=== PATIENT | female | born 1950 | race Caucasian/White ===

== ENCOUNTER 2016-12-04 15:26 | Inpatient (IN) | payer MEDICAID, OTHER ==
[~2016-12-04] VITALS: Ht 157.5 cm; Wt 82.0 kg
[~2016-12-04 15:26] MED LIST: IBUP400T22 PO; TRAM50TA2 PO
[2016-12-04] MEDS ORDERED: SODIUM CHLORIDE 0.9% 1L BAG IV* STA (15:39)
[2016-12-04] MEDS ORDERED: morphine 4 MG/ML VIAL IV STA (15:39)
[2016-12-04] MEDS ORDERED: ONDANSETRON 4 MG INJ IV STA ×2 (15:39→17:57)
[2016-12-04] MEDS ORDERED: CEFEPIME 2GM/50 ML (PMX) 50 ML IVPB STA (15:39)
[2016-12-04 16:00] LABS: ADD SCAN DIFF NO
[2016-12-04] MEDS ORDERED: VANCOMYCIN 1 GM (PMX) 250 ML IVPB ONE (16:00)
[2016-12-04 16:04] LABS: BASOPHILS % 0.1 % (0.0-2.0); EOSINOPHILS % 0.1 % (0.0-7.0); HEMATOCRIT 49.1 % (37.0-47.0); HEMOGLOBIN 15.9 g/dl (12.0-16.0); LYMPHOCYTES # 2.6 10^3/ul (0.8-2.9); LYMPHOCYTES % 19.6 % (15.0-51.0); MEAN CORPUSCULAR HEMOGLOBIN 28.1 pg (29.0-33.0); MEAN CORPUSCULAR HGB CONC 32.4 g/dl (32.0-37.0); MEAN CORPUSCULAR VOLUME 86.9 fl (82.0-101.0); MEAN PLATELET VOLUME 10.7 fl (7.4-10.4); MONOCYTE # 0.3 10^3/ul (0.3-0.9); MONOCYTES % 2.1 % (0.0-11.0); NEUTROPHIL # 10.4 10^3/ul (1.6-7.5); NEUTROPHILS % 77.9 % (39.0-77.0); PLATELET COUNT 333 10^3/UL (140-415); RED BLOOD COUNT 5.65 10^6/ul (4.20-5.40); RED CELL DISTRIBUTION WIDTH 13.6 % (11.5-14.5); WHITE BLOOD COUNT 13.4 10^3/ul (4.8-10.8)
[2016-12-04 16:13] LABS: INR 0.9; PROTIME 12.1 Sec (12.2-14.2); PT RATIO 0.9
[2016-12-04 16:14] LABS: ALBUMIN 5.1 g/dl (3.3-4.9); CHLORIDE 95 mmol/L (97-110); PARTIAL THROMBOPLASTIN TIME 22.2 Sec (25.0-35.0)
[2016-12-04 16:15] LABS: SODIUM 139 mmol/L (135-144)
[2016-12-04 16:17] LABS: ALBUMIN/GLOBULIN RATIO 1.18; ANION GAP 22 (8-16); ASPARTATE AMINO TRANSFERASE 23 IU/L (15-46); BILIRUBIN,INDIRECT 0.6 mg/dl (0-1.1); BILIRUBIN,TOTAL 0.6 mg/dl (0.2-1.3); CARBON DIOXIDE 26 mmol/L (21-31); TOTAL PROTEIN 9.4 g/dl (6.1-8.1)
[2016-12-04 16:18] LABS: ALANINE AMINOTRANSFERASE 32 IU/L (13-69); ALKALINE PHOSPHATASE 109 IU/L (42-121); BLOOD UREA NITROGEN 16 mg/dl (7-20); CALCIUM 10.4 mg/dl (8.4-10.2); GLUCOSE 296 mg/dl (70-220)
[2016-12-04] MEDS ORDERED: METF1000 PO (16:21)
[2016-12-04] MEDS ORDERED: LANT3I SC (16:22)
[2016-12-04] MEDS ORDERED: SITA100T8 PO (16:22)
[2016-12-04] MEDS ORDERED: SIMV40TA2 PO (16:23)
[2016-12-04] MEDS ORDERED: LISI20TA11 PO (16:23)
[2016-12-04] MEDS ORDERED: INSU100I12 SQ (16:24)
[2016-12-04 16:32] LABS: TROPONIN-I < 0.012 ng/ml (0.00-0.12)
--- NOTE | 2016-12-04 16:51 | RADRPT ---
PROCEDURE: XR Chest. CLINICAL INDICATION: Sepsis. TECHNIQUE: Single frontal view. COMPARISON: None. FINDINGS: The lungs are clear. The heart is enlarged. There is calcification in the aorta consistent with atherosclerosis. There is no pleural effusion. There is no pneumothorax. IMPRESSION: 1. Cardiomegaly and atherosclerosis. 2. Clear lungs. RPTAT: QQ .Ihsan Danielson MD, MD Date Time Electronically viewed and signed by .Ihsan Danielson MD, MD on 12/04/2016 16:51 .R/
--- NOTE | 2016-12-04 17:07 | RADRPT ---
PROCEDURE: CT Abdomen and Pelvis without contrast. CLINICAL INDICATION: Abdominal and pelvic pain. Vomiting. Sepsis TECHNIQUE: CT scan of the abdomen and pelvis without contrast was performed. Coronal and sagittal reformatted images were obtained from the axial source images. Images were reviewed on a high-res[employer] PACS workstation. Total exam DLP is 1219.64 mGy-cm. CTDIvol is 21.17 mGy. One or more of the following dose reduction techniques were used: Automated exposure control, adjustment of the mA and/ or kV according to patient size, use of iterative reconstruction technique. COMPARISON: None. FINDINGS: There is mild atelectasis at the lung bases posteriorly. The lung bases are otherwise normal. The heart size is normal. There is coronary artery calcification. There is no pleural effusion or trip cardial effusion. The liver is enlarged and diffusely decreased attenuation consistent with fatty metamorphosis. Ther e is no focal hepatic lesion. The gallbladder and bile ducts are normal. The spleen is normal in size. There is no focal splenic lesion. Both adrenals are normal with no enlargement or mass. The pancreas is unremarkable with no mass or evidence of pancreatitis. There is no renal mass or hydronephrosis. There is no renal calculus or ureteral calculus. The abdominal aorta is not dilated. There is calcification in the aorta consistent with atheroscler osis. There is no retroperitoneal lymphadenopathy or mass. There is no pelvic lymphadenopathy or mass. The bladder and distal ureters are normal. The periappendiceal region is unremarkable with no evidence of appendicitis. There is mildly dilated small bowel containing fluid in the upper and mid abdomen. There are no air -fluid levels. The distal small bowel is not dilated. There is no discrete transition point. There is no free fluid or free gas. There are degenerative changes of the spine. There is no fracture or lytic lesion. IMPRESSION: 1. Mild atelectasis at the lung bases posteriorly. 2. Coronary artery calcification. 3. Hepatomegaly. 4. Fatty metamorphosis of the liver. 5. Atherosclerosis. 6. No urinary tract calculus or hydronephrosis. 7. Mildly dilated small bowel containing fluid in the upper and mid abdomen with no air-fluid level s. The distal small bowel is dilated and there is no discrete transition point. The findings may i ndicate partial small bowel obstruction. Clinical correlation and follow up is advised. 8. Degenerative changes of the spine. 9. Otherwise unremarkable study. RPTAT: QQ .Ihsan Danielson MD, Date Time Electronically viewed and signed by .Ihsan Danielson MD, on 12/04/2016 17:07 .R/
--- NOTE | 2016-12-04 17:34 | RADRPT ---
PROCEDURE: US Abdomen (right upper quadrant). CLINICAL INDICATION: Right upper quadrant abdomen pain. Vomiting. TECHNIQUE: Multiple real-time longitudinal and transverse images of the right upper quadrant of th e abdomen were acquired utilizing a curved array transducer. Images were reviewed on a high-[employer] on PACS workstation. COMPARISON: None FINDINGS: The liver is normal in size and diffusely increased in echogenicity. There is no focal hepatic lesion. The gallbladder is normal with no stones or wall thickening. There is no pericholecystic fluid jose j ection. The bile ducts are normal with the common bile duct measuring mm in diameter. The visualized portions of the pancreas are unremarkable with obscuration of the tail of the pancrea s. There is no free fluid. There is a fluid collection between the gallbladder and pancreas measuring approximately 4.1 x 3.6 x 8.4 cm. This is due to dilated duodenum containing fluid. The right kidney measures 11.7 x 5.5 x 5.4 cm. There is normal echogenicity of the right kidney. There is no perinephric fluid collection. No hydronephrosis, mass, or calculus is seen. IMPRESSION: 1. Fatty metamorphosis of the liver. 2. Fluid collection between the gallbladder and pancreas which is due to dilated duodenum. Subsequ ent CT scan demonstrates dilated duodenum at this site and no abscess or other fluid collection. 3. Otherwise unremarkable study. RPTAT: QQ .Ihsan Danielson MD, Date Time Electronically viewed and signed by .Ihsan Danielson MD, on 12/04/2016 17:34 .R/
[2016-12-04] MEDS ORDERED: ONDANSETRON 4 MG INJ IV PRN ×2 (18:00→19:00)
[2016-12-04] MEDS ORDERED: ACETAMINOPHEN 325 MG TAB PO PRN ×2 (18:00→19:00)
--- NOTE | 2016-12-04 18:02 | ERA ---
ER Documentation Chief Complaint Date/Time DATE: 12/04/16 TIME: 17:59 Chief Complaint AP WITH VOMITING ONSET 1 HR AGO HPI Patient is a 66-year-old female with hypertension and diabetes who presents with abdominal pain and vomiting. The patient says that she is having pain in her liver. She has abdominal pain diffusely as well as vomiting yellow per the family. This started 1.5 hours ago. It actually started on Thursday but was worse today. The patient has had subjective fever. Upon review of old medical records the patient one previous visit to the ER in 2016. ROS All systems reviewed and are negative except as per history of present illness. Medications Home Meds Reported Medications Insulin Lispro (Humalog Kwikpen U-100) 100 Unit/1 Ml Insuln.pen, 15 UNIT SQ QAM 12/04/16 Simvastatin* (Zocor*) 40 Mg Tablet, 40 MG PO QHS, #30 TAB 12/04/16 Lisinopril* (Lisinopril*) 20 Mg Tablet, 40 MG PO DAILY, #30 TAB 12/04/16 Insulin Glargine* (Lantus*) 100 Unit/Ml Soln, 40 UNIT SC QHS, #1 VIAL 12/04/16 Sitagliptin* (Januvia*) 100 Mg Tablet, 100 MG PO DAILY, #30 TAB 12/04/16 Metformin Hcl* (Metformin Hcl*) 1,000 Mg Tablet, 1000 MG PO WITH BREAKFAST, #30 TAB 12/04/16 Discontinued Scripts Tramadol HCl (Tramadol HCl) 50 Mg Tablet, 50 MG PO Q4 Y for PAIN, #20 TAB Prov:JED,LORY C 07/31/16 Ibuprofen* (Motrin*) 400 Mg Tab, 400 MG PO Q6, #30 TAB Prov:JED,LORY C 07/31/16 Allergies Allergies: Coded Allergies: No Known Allergy (Unverified , 12/04/16) PMhx/Soc History of Surgery: No Anesthesia Reaction: No Hx Neurological Disorder: No Hx Respiratory Disorders: No Hx Cardiac Disorders: Yes (HTN) Hx Psychiatric Problems: No Hx Miscellaneous Medical Probl: Yes (DM) Hx Alcohol Use: No Hx Substance Use: No Hx Tobacco Use: No Smoking Status: Never smoker FmHx Family History: diabetes Physical Exam Vitals Vital Signs Date Time Temp Pulse Resp B/P Pulse Ox O2 Delivery O2 Flow Rate FiO2 4/13/17 17:26 89 18 104/54 98 Room Air 12/04/16 17:07 88 18 87/54 98 Room Air 12/04/16 16:09 Nasal Cannula 2 12/04/16 15:29 98.1 103 20 106/59 99 Physical Exam Const: Moderate distress Head: Atraumatic Eyes: Normal Conjunctiva ENT: Normal External Ears, Nose and Mouth. Neck: Full range of motion..~ No meningismus. Resp: Clear to auscultation bilaterally Cardio: Regular rate and rhythm, no murmurs Abd: Soft, diffuse tenderness to palpation without rebound or guarding Skin: No petechiae or rashes Back: No midline or flank tenderness Ext: No cyanosis, or edema Neur: Awake and alert Psych: Normal Mood and Affect Result Diagram: 12/04/16 1545 12/04/16 1545 Results 24 hrs Laboratory Tests Test 12/04/16 15:45 White Blood Count 13.410^3/ul Red Blood Count 5.6510^6/ul Hemoglobin 15.9g/dl Hematocrit 49.1% Mean Corpuscular Volume 86.9fl Mean Corpuscular Hemoglobin 28.1pg Mean Corpuscular Hemoglobin Concent 32.4g/dl Red Cell Distribution Width 13.6% Platelet Count 20553^3/UL Mean Platelet Volume 10.7fl Neutrophils % 77.9% Lymphocytes % 19.6% Monocytes % 2.1% Eosinophils % 0.1% Basophils % 0.1% Nucleated Red Blood Cells % 0.0/100WBC Neutrophils # 10.410^3/ul Lymphocytes # 2.610^3/ul Monocytes # 0.310^3/ul Eosinophils # 0.010^3/ul Basophils # 0.010^3/ul Nucleated Red Blood Cells # 0.010^3/ul Prothrombin Time 12.1Sec Prothrombin Time Ratio 0.9 INR International Normalized Ratio 0.90 Activated Partial Thromboplast Time 22.2Sec Sodium Level 139mmol/L Potassium Level 4.0mmol/L Chloride Level 95mmol/L Carbon Dioxide Level 26mmol/L Anion Gap 22 Blood Urea Nitrogen 16mg/dl Creatinine 0.90mg/dl Glucose Level 296mg/dl Lactic Acid Level 3.6mmol/L Calcium Level 10.4mg/dl Total Bilirubin 0.6mg/dl Direct Bilirubin 0.00mg/dl Indirect Bilirubin 0.6mg/dl Aspartate Amino Transf (AST/SGOT) 23IU/L Alanine Aminotransferase (ALT/SGPT) 32IU/L Alkaline Phosphatase 109IU/L Troponin I < 0.012ng/ml Total Protein 9.4g/dl Albumin 5.1g/dl Globulin 4.30g/dl Albumin/Globulin Ratio 1.18 Lipase 189U/L Current Medications Medications (Trade) Dose Ordered Sig/Debra Route PRN Reason Start Time Stop Time Status Last Admin Dose Admin Sodium Chloride 2760 ml 2,760 ml BOLUS OVER 2 HOURS STAT IV* 12/04/16 15:39 12/04/16 15:41 DC 12/04/16 15:53 Cefepime HCl 50 ml @ 100 mls/hr ONCE STAT IVPB 12/04/16 15:39 12/04/16 16:08 DC 12/04/16 15:58 Vancomycin HCl (Vancocin) 250 ml @ 125 mls/hr ONCE ONCE IVPB 12/04/16 16:00 12/04/16 17:59 12/04/16 16:21 Morphine Sulfate (morphine) 4 mg ONCE STAT IV 12/04/16 15:39 12/04/16 15:41 DC 12/04/16 15:58 Ondansetron HCl (Zofran Inj) 4 mg ONCE STAT IV 12/04/16 15:39 12/04/16 15:41 DC 12/04/16 15:58 Ondansetron HCl (Zofran Inj) 4 mg BRIDGE ORDER PRN IV NAUSEA AND/OR VOMITING 12/04/16 18:00 12/05/16 17:59 Acetaminophen (Tylenol Tab) 650 mg ER BRIDGE PRN PO MILD PAIN/FEVER 12/04/16 18:00 12/05/16 17:59 Ondansetron HCl (Zofran Inj) 4 mg ONCE STAT IV 12/04/16 17:57 12/04/16 17:58 Procedures/MDM EKG read by me: Rate/Rhythm: Regular rate and rhythm at a rate of 89 Intervals: Normal Impression: No evidence of ischemia or arrhythmia PROCEDURE: CT Abdomen and Pelvis without contrast. CLINICAL INDICATION: Abdominal and pelvic pain. Vomiting. Sepsis TECHNIQUE: CT scan of the abdomen and pelvis without contrast was performed. Coronal and sagittal reformatted images were obtained from the axial source images. Images were reviewed on a high-resolution PACS workstation. Total exam DLP is 1219.64 mGy-cm. CTDIvol is 21.17 mGy. One or more of the following dose reduction techniques were used: Automated exposure control, adjustment of the mA and/or kV according to patient size, use of iterative reconstruction technique. COMPARISON: None. FINDINGS: There is mild atelectasis at the lung bases posteriorly. The lung bases are otherwise normal. The heart size is normal. There is coronary artery calcification. There is no pleural effusion or pericardial effusion. The liver is enlarged and diffusely decreased attenuation consistent with fatty metamorphosis. There is no focal hepatic lesion. The gallbladder and bile ducts are normal. The spleen is normal in size. There is no focal splenic lesion. Both adrenals are normal with no enlargement or mass. The pancreas is unremarkable with no mass or evidence of pancreatitis. There is no renal mass or hydronephrosis. There is no renal calculus or ureteral calculus. The abdominal aorta is not dilated. There is calcification in the aorta consistent with atherosclerosis. There is no retroperitoneal lymphadenopathy or mass. There is no pelvic lymphadenopathy or mass. The bladder and distal ureters are normal. The periappendiceal region is unremarkable with no evidence of appendicitis. There is mildly dilated small bowel containing fluid in the upper and mid abdomen. There are no air-fluid levels. The distal small bowel is not dilated. There is no discrete transition point. There is no free fluid or free gas. There are degenerative changes of the spine. There is no fracture or lytic lesion. IMPRESSION: 1. Mild atelectasis at the lung bases posteriorly. 2. Coronary artery calcification. 3. Hepatomegaly. 4. Fatty metamorphosis of the liver. 5. Atherosclerosis. 6. No urinary tract calculus or hydronephrosis. 7. Mildly dilated small bowel containing fluid in the upper and mid abdomen with no air-fluid levels. The distal small bowel is dilated and there is no discrete transition point. The findings may indicate partial small bowel obstruction. Clinical correlation and follow up is advised. 8. Degenerative changes of the spine. 9. Otherwise unremarkable study. RPTAT: QQ .Ihsan Danielson MD, MD Date Time Electronically viewed and signed by .Ihsan Danielson MD, on 12/04/2016 17:07 Patient is a 66-year-old female with hypertension and diabetes who presents with abdominal pain and vomiting. Admit MDM: Patient's infectious symptoms have not stabilized and the patient is at risk of rapid decompensation. The patient will be admitted for careful hydration, antibiotic therapy, and infectious source control. Severe Sepsis criteria: Infectious source: Unclear at this time End organ damage indicated by: Lactate greater than 2 Sepsis Management: Time of recognition of severe sepsis/septic shock: 15:45 Within 3 hours of recognition: Blood cultures x 2 before broad-spectrum antibiotics: Yes 30 ml/kg NS bolus Completed Initial lactate 3.6 Repeat lactate pending Septic Shock Assessment: Any lactic acid > 4.0 No Persistent hypotension (SBP < 90 or 40 mmHg drop, MAP < 65) despite 30 mL/kg IV fluid bolus No Volume Re-assessment for Septic Shock (post 30 ml/kg bolus): No septic shock at this time Persistent Hypotension Treatment: Comfort care No Central line no Vasopressor started not required I considered further perfusion assessment with CVP measurement, SCVO2, bedside ultrasound volume assessment, passive leg raise, trial of further fluid bolus. And proceeded with Zofran, morphine, normal saline 30 mL/kg bolus, vancomycin IV , cefepime IV, and admission. Accepting Care Team Current data and ongoing care discussed. Admitting Physician: Dr. Dewitt from the panel team as the patient does not have a primary doctor that admits here and has never been admitted before and has [employer] insurance sales specialist(s): None Outstanding Data: Culture results and repeat lactic acid Critical Care: Critical care time 35 minutes Emergent fluid management while maintaining close respiratory support. Provision of immediate and broad-spectrum antibiotic therapy. Simultaneous assessment for possible sources in order to direct targeted therapy. Consideration for invasive and chemical support to prevent cardiopulmonary collapse. Departure Diagnosis: Primary Impression: Severe sepsis Additional Impression: Vomiting Qualified Code: R11.14 - Bilious vomiting with nausea Condition: Serious SHERRY MOHR MD Dec 04, 2016 18:02
[2016-12-04] MEDS ORDERED: SOD CHLORIDE 0.45% 1,000 ML IV SCH (18:59)
[2016-12-04] MEDS ORDERED: HYDROCODONE/APAP (5/325) TAB PO PRN (19:00)
[2016-12-04] MEDS ORDERED: morphine 2 MG INJ IV PRN (19:00)
[2016-12-04] MEDS ORDERED: NACL 0.9% 3 ML SYG IV SCH (19:00)
[2016-12-04 19:35] VITALS: BP 107/56; RESP 20
[2016-12-04] MEDS ORDERED: SOD CHLORIDE 0.9% 500 ML IV ONE (20:00)
[2016-12-04 21:00] VITALS: Ht 157.5 cm; Wt 82.0 kg
[2016-12-04] MEDS ORDERED: SOD CHLORIDE 0.9% 1,000 ML IV SCH (23:30)
[2016-12-04] MEDS ORDERED: VANCOMYCIN IV PER PHARMACY XX SCH (23:30)
[2016-12-04] MEDS ORDERED: GLUCOSE GEL 15 GRAM TUBE BUCCAL PRN (23:45)
[2016-12-04] MEDS ORDERED: GLUCOSE GEL 15 GRAM TUBE PO PRN ×2 (23:45)
[2016-12-04] MEDS ORDERED: DEXTROSE 50% 50 ML SYRINGE IV PRN ×2 (23:45)
[2016-12-04] MEDS ORDERED: GLUCAGON 1 MG INJ IM PRN (23:45)
[2016-12-05] MEDS ORDERED: CEFTRIAXONE 1 GM INJ IVPB SCH
[2016-12-05] MEDS: CEFTRIAXONE 1 GM/50 ML (PMX) 50 ML IVPB SCH ×3 (00:30→20:52)
[2016-12-05] MEDS ORDERED: IOHEXOL 14.3 MG(I)/ML (ADULT) BTL PO ONE (03:30)
[2016-12-05] MEDS ORDERED: BARIUM SULF 2% 450 ML BTL (BERRY SMOOTHIE) PO ONE ×2 (03:30→13:30)
[2016-12-05] MEDS: DEXTROSE 5%-0.45% NACL 1,000 ML IV SCH ×3 (03:55→20:10)
--- NOTE | 2016-12-05 04:38 | HP ---
DATE OF ADMISSION: 12/04/2016 TIME SEEN: 2200. CHIEF COMPLAINT: Abdominal pain. HISTORY OF PRESENT ILLNESS: The patient is a 66-year-old female with a history of hypertension and diabetes who presented to the emergency department with a chief complaint of abdominal pain. She sa id the abdominal pain started 2 days ago and has been progressively getting worse. The pain is diff use, but mainly in the right upper quadrant area. Today pain was also associated with vomiting desc ribed as yellowish ____. She denied chest pain, shortness of breath, fever, or chills. When she pr esented to the ER, vitals were stable. A CT abdomen and pelvis without contrast showed a possible p artial small-bowel obstruction and fatty liver. Right upper quadrant ultrasound showed fluid within the pancreas ____ which is secondary to food in the duodenum. Her laboratory values show a WBC of 13,000 and lactic acid as high as 4.4, but the third one trended down to 1.5. When she was in the E R, blood pressure was noted to be as low as 87/54 which improved to low hundreds after she was given the IV fluid. REVIEW OF SYSTEMS: A 12-point review was performed, negative except as mentioned in HPI. PAST MEDICAL HISTORY: As per HPI. PAST SURGICAL HISTORY: Denies. SOCIAL HISTORY: Denies history of tobacco, alcohol, or illicit drug use. ALLERGIES: NO KNOWN DRUG ALLERGY. HOME MEDICATION: 1. Lisinopril. 2. Zocor. 3. Insulin. 4. Metformin. 5. Januvia. PHYSICAL EXAMINATION VITAL SIGNS: Stable. GENERAL: The patient in mild discomfort due to abdominal pain. HEENT: No obvious head deformity. No scleral icterus. Pupils are reactive to light. CARDIOVASCULAR: Slightly tachycardic with regular rhythm. LUNGS: Clear. ABDOMEN: Soft. There is tenderness to deep palpation diffusely, but mainly in the right side of he r abdomen. No guarding, no rebound tenderness, no rigidity. EXTREMITIES: No edema. NEUROLOGIC: No focal deficits. LABORATORY: WBC 13,000. Lactic acid as high as 4.4, but latest one 1.5, glucose 296. IMAGING: Right upper quadrant ultrasound and CT abdomen and pelvis without contrast with results as mentioned in the HPI. IMPRESSION: 1. Abdominal pain and vomiting, likely secondary to partial small-bowel obstruction. 2. Probable partial small-bowel obstruction. 3. Systemic inflammatory response syndrome, with leukocytosis and tachycardia, with unknown source of infection. 4. Lactic acidosis, resolved. 5. Diabetes with hyperglycemia. 6. History of hypertension, blood pressure currently within goal. PLAN: We will keep n.p.o. with IV fluids. We will provide pain medication and antiemetics as neede d. I will order a CT abdomen and pelvis with oral and IV contrast for further evaluation of probabl e bowel obstruction. I am not sure whether or a surgeon has been consulted, but the daytime team wi ll clarify that. She will be placed on insulin for diabetes and will check A1c. Will hold her anti hypertensive given her blood pressure on the low side and as mentioned, will continue IV fluids. Wi ll further do infectious workup given presentation of SIRS with lactic acidosis. She will be empiri olamide put on antibiotic. Further workup and management per clinical course. Dictated By: BRICE ELIAS/LORETO Conf#: [id number] DID#: [id number]
[2016-12-05 06:15] LABS: ADD SCAN DIFF NO
[2016-12-05 06:39] LABS: LYMPHOCYTES # 2.7 10^3/ul (0.8-2.9)
[2016-12-05 06:45] LABS: BASOPHILS % 0.2 % (0.0-2.0); EOSINOPHILS # 0.1 10^3/ul (0.0-0.5); EOSINOPHILS % 0.9 % (0.0-7.0); HEMATOCRIT 38.4 % (37.0-47.0); HEMOGLOBIN 12.2 g/dl (12.0-16.0); LYMPHOCYTES % 27.4 % (15.0-51.0); MEAN CORPUSCULAR HEMOGLOBIN 27.7 pg (29.0-33.0); MEAN CORPUSCULAR HGB CONC 31.8 g/dl (32.0-37.0); MEAN CORPUSCULAR VOLUME 87.3 fl (82.0-101.0); MONOCYTE # 0.6 10^3/ul (0.3-0.9); MONOCYTES % 6.4 % (0.0-11.0); NEUTROPHIL # 6.5 10^3/ul (1.6-7.5); NEUTROPHILS % 64.8 % (39.0-77.0); PLATELET COUNT 273 10^3/UL (140-415); RED CELL DISTRIBUTION WIDTH 13.9 % (11.5-14.5)
[2016-12-05 06:46] LABS: ALBUMIN 3.3 g/dl (3.3-4.9); ALBUMIN/GLOBULIN RATIO 1.1; BILIRUBIN,INDIRECT 0.3 mg/dl (0-1.1); BILIRUBIN,TOTAL 0.3 mg/dl (0.2-1.3); CALCIUM 8.1 mg/dl (8.4-10.2); CREATININE 0.49 mg/dl (0.44-1.00); MAGNESIUM 1.8 mg/dl (1.7-2.5); PHOSPHORUS 4.1 mg/dl (2.5-4.9); POTASSIUM 4.2 mmol/L (3.5-5.1); TOTAL PROTEIN 6.3 g/dl (6.1-8.1)
[2016-12-05] MEDS: INSULIN ASPART [NOVOLOG] 3 ML PEN SC SCH ×7 (08:15→20:51)
[2016-12-05 08:30] VITALS: BP 94/52; PULSE 64; RESP 20
[2016-12-05] MEDS ORDERED: LINAGLIPTIN 5 MG TABLET PO SCH (09:00)
[2016-12-05] MEDS ORDERED: LISINOPRIL 20 MG TAB PO SCH (09:00)
[2016-12-05] MEDS ORDERED: IOHEXOL 300MG/ML 30 ML BTL ONE (09:38)
[2016-12-05] MEDS: HEPARIN 5,000 UNIT/0.5 ML VIAL SC SCH ×2 (10:27→21:15)
[2016-12-05 11:14] LABS: ADD UMIC YES; URINE BILIRUBIN (Dip) NEGATIVE (NEGATIVE); URINE BLOOD (Dip) 2+ (NEGATIVE); URINE COLOR LT. YELLOW (YELLOW); URINE GLUCOSE (Dip) NEGATIVE (NEGATIVE); URINE KETONES (Dip) NEGATIVE (NEGATIVE); URINE LEUKOCYTE ESTERASE (Dip) TRACE (NEGATIVE); URINE NITRITE (Dip) NEGATIVE (NEGATIVE); URINE TOTAL PROTEIN (Dip) NEGATIVE (NEGATIVE); URINE UROBILINOGEN (Dip) 0.2 E.U./dL (0.1-1.0)
[2016-12-05] MEDS ORDERED: VANCOMYCIN 1 GM in NS 250 ML IVPB SCH (11:30)
[2016-12-05 11:45] LABS: BACTERIA,URINE FEW
[2016-12-05] MEDS ORDERED: VANCOMYCIN 1.25 GM in SOD CHLORIDE 0.9% 250 ML IVPB SCH (12:00)
--- NOTE | 2016-12-05 12:35 | CONS ---
Date/Time of Note Date/Time of Note DATE: 12/05/16 TIME: 12:24 Assessment/Plan Assessment/Plan Additional Assessment/Plan Abdominal pain/nausea/vomiting Rule out SBO NPO Review CT results May require SBFT May require Surgery consult Advance diet with neg SBFT or bowel movement Type 2 diabetes Management per Primary Accu-Cheks per protocol Hypertension Management per Primary Continue home medications Further recommendations depend on clinical course Patient seen in collaboration with Dr. Lang Consultation Date/Type/Reason Admit Date/Time Dec 04, 2016 at 17:33 Type of Consultation: GI Hx of Present Illness Mrs Cathy Angeles is a 66 YO woman that presented to the ED secondary to complaints of weakness, right upper quadrant abdominal pain, nausea, nonbloody bilious vomiting since Thursday. Patient denies previous episode. Patient denies fever, chills, diarrhea, melena stools, sick contacts, and travel outside the [place]. Patient has past medical history of hypertension and diabetes. Social History Smoking Status: Never smoker Exam/Review of Systems Vital Signs Vitals Vital Signs Date Time Temp Pulse Resp B/P Pulse Ox O2 Delivery O2 Flow Rate FiO2 12/05/16 08:30 98.6 64 20 94/52 96 Room Air 12/04/16 16:09 2 Intake and Output 12/04/16 12/04/16 12/05/16 15:00 23:00 07:00 Intake Total 500 ml 770 ml Balance 500 ml 770 ml Exam Constitutional: alert, oriented, well developed Psych: nl mood/affect Head: normocephalic Eyes: EOMI, nl conjunctiva, nl lids ENMT: nl external ears & nose, nl lips & teeth, nl nasal mucosa & septum Respiratory: clear to auscultation, normal air movement Cardiovascular: regular rate and rhythm Gastrointestinal: soft, nontender Musculoskeletal: nl extremities to inspection Neurological: SILK SPOOLER II-XII intact Results Result Diagram: 12/05/16 0508 12/05/16 0508 Results 24 hrs Laboratory Tests Test 12/04/16 15:45 12/04/16 18:15 12/04/16 19:13 12/04/16 21:40 White Blood Count 13.4 H Red Blood Count 5.65 H Hemoglobin 15.9 Hematocrit 49.1 H Mean Corpuscular Volume 86.9 Mean Corpuscular Hemoglobin 28.1 L Mean Corpuscular Hemoglobin Concent 32.4 Red Cell Distribution Width 13.6 Platelet Count 333 Mean Platelet Volume 10.7 H Neutrophils % 77.9 H Lymphocytes % 19.6 Monocytes % 2.1 Eosinophils % 0.1 Basophils % 0.1 Nucleated Red Blood Cells % 0.0 Neutrophils # 10.4 H Lymphocytes # 2.6 Monocytes # 0.3 Eosinophils # 0.0 Basophils # 0.0 Nucleated Red Blood Cells # 0.0 Prothrombin Time 12.1 L Prothrombin Time Ratio 0.9 INR International Normalized Ratio 0.90 Activated Partial Thromboplast Time 22.2 L Sodium Level 139 Potassium Level 4.0 Chloride Level 95 L Carbon Dioxide Level 26 Anion Gap 22 H Blood Urea Nitrogen 16 Creatinine 0.90 Glucose Level 296 H Lactic Acid Level 3.6 H 4.4 *H 1.5 Calcium Level 10.4 H Total Bilirubin 0.6 Direct Bilirubin 0.00 Indirect Bilirubin 0.6 Aspartate Amino Transf (AST/SGOT) 23 Alanine Aminotransferase (ALT/SGPT) 32 Alkaline Phosphatase 109 Troponin I < 0.012 Total Protein 9.4 H Albumin 5.1 H Globulin 4.30 H Albumin/Globulin Ratio 1.18 Lipase 189 Bedside Glucose 211 Test 12/04/16 22:30 12/05/16 05:08 12/05/16 07:40 12/05/16 10:02 Bedside Glucose 175 155 164 White Blood Count 10.0 # Red Blood Count 4.40 # Hemoglobin 12.2 # Hematocrit 38.4 # Mean Corpuscular Volume 87.3 Mean Corpuscular Hemoglobin 27.7 L Mean Corpuscular Hemoglobin Concent 31.8 L Red Cell Distribution Width 13.9 Platelet Count 273 Mean Platelet Volume 11.0 H Neutrophils % 64.8 Lymphocytes % 27.4 Monocytes % 6.4 Eosinophils % 0.9 Basophils % 0.2 Nucleated Red Blood Cells % 0.0 Neutrophils # 6.5 Lymphocytes # 2.7 Monocytes # 0.6 Eosinophils # 0.1 Basophils # 0.0 Nucleated Red Blood Cells # 0.0 Sodium Level 135 Potassium Level 4.2 Chloride Level 106 # Carbon Dioxide Level 24 Anion Gap 9 # Blood Urea Nitrogen 15 Creatinine 0.49 Glucose Level 155 # Hemoglobin A1c 7.8 H Calcium Level 8.1 L Phosphorus Level 4.1 Magnesium Level 1.8 Total Bilirubin 0.3 Direct Bilirubin 0.00 Indirect Bilirubin 0.3 Aspartate Amino Transf (AST/SGOT) 21 Alanine Aminotransferase (ALT/SGPT) 33 Alkaline Phosphatase 56 Total Protein 6.3 # Albumin 3.3 # Globulin 3.00 Albumin/Globulin Ratio 1.10 Triglycerides Level 69 Cholesterol Level 114 LDL Cholesterol, Calculated 62 HDL Cholesterol 38 Cholesterol/HDL Ratio 3.0 Test 12/05/16 10:38 12/05/16 12:09 Bedside Glucose 166 94 Medications Medications Current Medications Ondansetron HCl (Zofran Inj) 4 mg Q6H PRN IV NAUSEA AND/OR VOMITING; Start at 19:00 Acetaminophen (Tylenol Tab) 650 mg Q6H PRN PO PAIN LEVEL 1-3 OR FEVER; Start at 19:00 Acetaminophen/ Hydrocodone Bitart ([place] (5/325)) 1 tab Q6H PRN PO MODERATE PAIN LEVEL 4-6; Start 12/04/16 at 19:00 Morphine Sulfate (morphine) 2 mg Q4H PRN IV SEVERE PAIN LEVEL 7-10; Start 12/04 at 19:00 Insulin Glargine (Lantus) 40 unit QHS SC ; Start 12/05/16 at 21:00 Miscellaneous Information 1 ea NOTE XX ; Start 12/04/16 at 23:45 Glucose (Glutose) 15 gm Q15M PRN PO DECREASED GLUCOSE; Start 12/04/16 at 23:45 Glucose (Glutose) 22.5 gm Q15M PRN PO DECREASED GLUCOSE; Start 12/04/16 at 23: 45 Dextrose (D50w Syringe) 25 ml Q15M PRN IV DECREASED GLUCOSE; Start 12/04/16 at 23:45 Dextrose (D50w Syringe) 50 ml Q15M PRN IV DECREASED GLUCOSE; Start 12/04/16 at 23:45 Glucagon (Glucagen) 1 mg Q15M PRN IM DECREASED GLUCOSE; Start 12/04/16 at 23:45 Glucose (Glutose) 15 gm Q15M PRN BUCCAL DECREASED GLUCOSE; Start 12/04/16 at 23 :45 Heparin Sodium (Porcine) 5000 unit 5,000 unit Q12 SC Last administered on 10:27; Admin Dose 5,000 UNIT; Start 12/05/16 at 09:00 Ceftriaxone Sodium 50 ml @ 100 mls/hr Q12 IVPB Last administered on 12/05/16 10:50; Admin Dose 100 MLS/HR; Start 12/04/16 at 23:45 Dextrose/Sodium Chloride (D5-1/2ns) 1,000 ml @ 120 mls/hr Q8H20M IV Last administered on 12/05/16t 03:55; Admin Dose 120 MLS/HR; Start 12/05/16 at 03:30 Pantoprazole (Protonix Iv) 40 mg DAILY@06 IV ; Start 12/06/16 at 06:00 MONICA SCHOFIELD Dec 05, 2016 12:34
--- NOTE | 2016-12-05 12:41 | PN ---
Date/Time of Note Date/Time of Note DATE: 12/05/16 TIME: 12:38 Assessment/Plan VTE Prophylaxis VTE Prophylaxis Intervention: LMWH Lines/Catheters IV Catheter Type (from Nrs): Peripheral IV Assessment/Plan Chief Complaint/Hosp Course S: Appears to be passing gas. No nausea vomiting or fever overnight O: Vss PE No pallor icterus adenopathy Reg Clear Bs dimin but present mild tenderness. ND. Obese. No rigidity no rebound and guarding Ext no edema A/P 1. Small bowel obstruction. For Gastrografin study. Stable, consider diet. Cont ivf/ antibiotics 2. Obesity. Needs weight management care 3. DM/dyslip/htn/metabolic syndrome 4. SIRS Problems: Exam/Review of Systems Vital Signs Vitals Vital Signs Date Time Temp Pulse Resp B/P Pulse Ox O2 Delivery O2 Flow Rate FiO2 12/05/16 08:30 98.6 64 20 94/52 96 Room Air 12/04/16 16:09 2 Intake and Output 12/04/16 12/04/16 12/05/16 15:00 23:00 07:00 Intake Total 500 ml 770 ml Balance 500 ml 770 ml Results Result Diagram: 12/05/16 0508 12/05/16 0508 Results 24 hrs Laboratory Tests Test 12/04/16 15:45 12/04/16 18:15 12/04/16 19:13 12/04/16 21:40 White Blood Count 13.4 H Red Blood Count 5.65 H Hemoglobin 15.9 Hematocrit 49.1 H Mean Corpuscular Volume 86.9 Mean Corpuscular Hemoglobin 28.1 L Mean Corpuscular Hemoglobin Concent 32.4 Red Cell Distribution Width 13.6 Platelet Count 333 Mean Platelet Volume 10.7 H Neutrophils % 77.9 H Lymphocytes % 19.6 Monocytes % 2.1 Eosinophils % 0.1 Basophils % 0.1 Nucleated Red Blood Cells % 0.0 Neutrophils # 10.4 H Lymphocytes # 2.6 Monocytes # 0.3 Eosinophils # 0.0 Basophils # 0.0 Nucleated Red Blood Cells # 0.0 Prothrombin Time 12.1 L Prothrombin Time Ratio 0.9 INR International Normalized Ratio 0.90 Activated Partial Thromboplast Time 22.2 L Sodium Level 139 Potassium Level 4.0 Chloride Level 95 L Carbon Dioxide Level 26 Anion Gap 22 H Blood Urea Nitrogen 16 Creatinine 0.90 Glucose Level 296 H Lactic Acid Level 3.6 H 4.4 *H 1.5 Calcium Level 10.4 H Total Bilirubin 0.6 Direct Bilirubin 0.00 Indirect Bilirubin 0.6 Aspartate Amino Transf (AST/SGOT) 23 Alanine Aminotransferase (ALT/SGPT) 32 Alkaline Phosphatase 109 Troponin I < 0.012 Total Protein 9.4 H Albumin 5.1 H Globulin 4.30 H Albumin/Globulin Ratio 1.18 Lipase 189 Bedside Glucose 211 Test 12/04/16 22:30 12/05/16 05:08 12/05/16 07:40 12/05/16 10:02 Bedside Glucose 175 155 164 White Blood Count 10.0 # Red Blood Count 4.40 # Hemoglobin 12.2 # Hematocrit 38.4 # Mean Corpuscular Volume 87.3 Mean Corpuscular Hemoglobin 27.7 L Mean Corpuscular Hemoglobin Concent 31.8 L Red Cell Distribution Width 13.9 Platelet Count 273 Mean Platelet Volume 11.0 H Neutrophils % 64.8 Lymphocytes % 27.4 Monocytes % 6.4 Eosinophils % 0.9 Basophils % 0.2 Nucleated Red Blood Cells % 0.0 Neutrophils # 6.5 Lymphocytes # 2.7 Monocytes # 0.6 Eosinophils # 0.1 Basophils # 0.0 Nucleated Red Blood Cells # 0.0 Sodium Level 135 Potassium Level 4.2 Chloride Level 106 # Carbon Dioxide Level 24 Anion Gap 9 # Blood Urea Nitrogen 15 Creatinine 0.49 Glucose Level 155 # Hemoglobin A1c 7.8 H Calcium Level 8.1 L Phosphorus Level 4.1 Magnesium Level 1.8 Total Bilirubin 0.3 Direct Bilirubin 0.00 Indirect Bilirubin 0.3 Aspartate Amino Transf (AST/SGOT) 21 Alanine Aminotransferase (ALT/SGPT) 33 Alkaline Phosphatase 56 Total Protein 6.3 # Albumin 3.3 # Globulin 3.00 Albumin/Globulin Ratio 1.10 Triglycerides Level 69 Cholesterol Level 114 LDL Cholesterol, Calculated 62 HDL Cholesterol 38 Cholesterol/HDL Ratio 3.0 Test 12/05/16 10:38 12/05/16 12:09 Bedside Glucose 166 94 Medications Medications Current Medications Ondansetron HCl (Zofran Inj) 4 mg Q6H PRN IV NAUSEA AND/OR VOMITING; Start at 19:00 Acetaminophen (Tylenol Tab) 650 mg Q6H PRN PO PAIN LEVEL 1-3 OR FEVER; Start at 19:00 Acetaminophen/ Hydrocodone Bitart ([place] (5/325)) 1 tab Q6H PRN PO MODERATE PAIN LEVEL 4-6; Start 12/04/16 at 19:00 Morphine Sulfate (morphine) 2 mg Q4H PRN IV SEVERE PAIN LEVEL 7-10; Start 12/04 at 19:00 Insulin Glargine (Lantus) 40 unit QHS SC ; Start 12/05/16 at 21:00 Miscellaneous Information 1 ea NOTE XX ; Start 12/04/16 at 23:45 Glucose (Glutose) 15 gm Q15M PRN PO DECREASED GLUCOSE; Start 12/04/16 at 23:45 Glucose (Glutose) 22.5 gm Q15M PRN PO DECREASED GLUCOSE; Start 12/04/16 at 23: 45 Dextrose (D50w Syringe) 25 ml Q15M PRN IV DECREASED GLUCOSE; Start 12/04/16 at 23:45 Dextrose (D50w Syringe) 50 ml Q15M PRN IV DECREASED GLUCOSE; Start 12/04/16 at 23:45 Glucagon (Glucagen) 1 mg Q15M PRN IM DECREASED GLUCOSE; Start 12/04/16 at 23:45 Glucose (Glutose) 15 gm Q15M PRN BUCCAL DECREASED GLUCOSE; Start 12/04/16 at 23 :45 Heparin Sodium (Porcine) 5000 unit 5,000 unit Q12 SC Last administered on 10:27; Admin Dose 5,000 UNIT; Start 12/05/16 at 09:00 Ceftriaxone Sodium 50 ml @ 100 mls/hr Q12 IVPB Last administered on 12/05/16 10:50; Admin Dose 100 MLS/HR; Start 12/04/16 at 23:45 Dextrose/Sodium Chloride (D5-1/2ns) 1,000 ml @ 120 mls/hr Q8H20M IV Last administered on 12/05/16 03:55; Admin Dose 120 MLS/HR; Start 12/05/16 at 03:30 Pantoprazole (Protonix Iv) 40 mg DAILY@06 IV ; Start 12/06/16 at 06:00 KYLEE TSANG MD Dec 05, 2016 12:41
[2016-12-05] MEDS ORDERED: SOD CHLORIDE 0.9% 100 ML ONE (14:27)
[2016-12-05] MEDS ORDERED: IODIXANOL LOCM 100 ML BTL ONE (14:27)
--- NOTE | 2016-12-05 17:10 | RADRPT ---
PROCEDURE: CT abdomen and pelvis with contrast. CLINICAL INDICATION: Small bowel obstruction. Follow-up evaluation. TECHNIQUE: CT scan of the abdomen and pelvis with contrast was performed. Oral contrast media was utilized. Coronal and sagittal images were also reformatted. 100 cc Visipaque 320 intravenous contr ast was administered without complication. Total exam CTDIvol = 21.67 mGy and DLP = 1280.01 mGy-cm. COMPARISON: CT 12/04/2016 FINDINGS: Visualized lower thorax: Bilateral dependent lower lobe subsegmental atelectasis is slightly worse. The visualized heart is mildly enlarged with left anterior descending coronary artery calcification again noted. There is no evidence for pleural effusion. Liver, gallbladder, pancreas and spleen: Diffuse low attenuation of the liver is consistent with he patic steatosis with preserved contour and mild hepatomegaly of 19 cm again seen. There is no evide nce for liver mass or ductal dilatation. The gallbladder is unremarkable. No common bile duct dila tation is evident. The pancreas is normal. The spleen is normal, not enlarged. Adrenal glands and genitourinary system: The adrenal glands are normal bilaterally. The kidneys ar e normal in size, contour and attenuation with no evidence for masses, calculi or hydronephrosis. Sy mmetric enhancement of the kidneys is noted without pyelonephritis The ureters are unremarkable. Th e urinary bladder shows no abnormality. Slightly lobulated contour to the uterus unable to exclude incidental leiomyomata. There is no evidence of ovarian or adnexal mass. Gastrointestinal system: The stomach is contracted and unremarkable for wall thickening . There has been interval resolution and small bowel dilatation compared to the prior examination the small bow el loops now normal in caliber with enteric contrast media in the distal [place] and having reached the splenic flexure. There is no evidence of appendicitis. A normal amount of fecal debris is present within the colon and there is no wall thickening to suggest colitis. Peritoneum, retroperitoneum, vessels and lymph nodes: The abdominal aorta is normal in caliber. Th ere is mild aortic and iliac atherosclerotic calcification. Inferior vena cava is normal in caliber . There is no evidence for adenopathy. The peritoneal cavity is normal with no evidence for ascite s. No abscess or pneumoperitoneum is present Osseous structures and musculoskeletal system: There is no evidence for acute osseous abnormality o r muscular pathology. Degenerative disk disease at L4-5 is again seen No subcutaneous abnormalities are present. RPTAT:HJJR IMPRESSION: 1. Interval resolution of ileus/partial small bowel obstruction pattern compared to 12/04/2016, the gastrointestinal system is now unremarkable with the enteric contrast media having reached the sple bolivar flexure. 2. Increase in bilateral lower lobe subsegmental atelectasis compared to the prior exam. 3. Hepatomegaly and hepatic steatosis again noted. 4. Slightly nodular appearance to the uterus possibly incidental leiomyomatous changes. 5. Aortic atherosclerosis is present. Physician May Date Time Electronically viewed and signed by Jerrell Calles Physician on 12/05/2016 17:10 JR/
[2016-12-05 20:00] VITALS: BP 131/62; RESP 20
[2016-12-05] MEDS ORDERED: ATORVASTATIN 20 MG TAB PO SCH (21:00)
[2016-12-05] MEDS ORDERED: INSULIN GLARGINE [LANtus] 3 ML PEN SC SCH (21:00)
[2016-12-06] MEDS: DEXTROSE 5%-0.45% NACL 1,000 ML IV SCH ×2 (01:35→04:30)
[2016-12-06 05:33] LABS: ADD SCAN DIFF NO
[2016-12-06 05:42] LABS: BASOPHILS % 0.3 % (0.0-2.0); EOSINOPHILS # 0.1 10^3/ul (0.0-0.5); EOSINOPHILS % 1.8 % (0.0-7.0); HEMATOCRIT 38.2 % (37.0-47.0); HEMOGLOBIN 12.2 g/dl (12.0-16.0); LYMPHOCYTES # 3.4 10^3/ul (0.8-2.9); LYMPHOCYTES % 46.5 % (15.0-51.0); MEAN CORPUSCULAR HEMOGLOBIN 28.3 pg (29.0-33.0); MEAN CORPUSCULAR HGB CONC 31.9 g/dl (32.0-37.0); MEAN CORPUSCULAR VOLUME 88.6 fl (82.0-101.0); MEAN PLATELET VOLUME 10.7 fl (7.4-10.4); MONOCYTE # 0.5 10^3/ul (0.3-0.9); MONOCYTES % 6.4 % (0.0-11.0); NEUTROPHIL # 3.3 10^3/ul (1.6-7.5); NEUTROPHILS % 44.7 % (39.0-77.0); PLATELET COUNT 232 10^3/UL (140-415); RED BLOOD COUNT 4.31 10^6/ul (4.20-5.40); RED CELL DISTRIBUTION WIDTH 13.8 % (11.5-14.5); WHITE BLOOD COUNT 7.4 10^3/ul (4.8-10.8)
[2016-12-06] MEDS ORDERED: PANTOPRAZOLE 40 MG INJ IV SCH (06:00)
[2016-12-06 07:26] LABS: ALBUMIN 3.2 g/dl (3.3-4.9); ALBUMIN/GLOBULIN RATIO 1.1; CALCIUM 8.2 mg/dl (8.4-10.2); CREATININE 0.5 mg/dl (0.44-1.00); MAGNESIUM 1.8 mg/dl (1.7-2.5); PHOSPHORUS 3.3 mg/dl (2.5-4.9); POTASSIUM 3.9 mmol/L (3.5-5.1); TOTAL PROTEIN 6.1 g/dl (6.1-8.1)
--- NOTE | 2016-12-06 07:36 | PN ---
Date/Time of Note Date/Time of Note DATE: 12/06/16 TIME: 07:34 Assessment/Plan VTE Prophylaxis VTE Prophylaxis Intervention: LMWH Lines/Catheters IV Catheter Type (from Nrs): Peripheral IV Assessment/Plan Chief Complaint/Hosp Course S: Appears to be passing gas. No nausea vomiting or fever overnight 12/06- O: Vss PE No pallor icterus Reg Clear Bs dimin better nd nt; Obese. No rigidity no rebound and guarding Ext no edema A/P 1. Small bowel obstruction. sp Gastrografin. Stable, advance diet. Cont ivf/ antibiotics> +/- dc home. 2. Obesity. Needs weight management care 3. DM/dyslip/htn/metabolic syndrome 4. SIRS Problems: Exam/Review of Systems Vital Signs Vitals Vital Signs Date Time Temp Pulse Resp B/P Pulse Ox O2 Delivery O2 Flow Rate FiO2 12/05/16 20:00 98.0 74 20 131/62 98 12/05/16 08:30 Room Air 12/04/16 16:09 2 Intake and Output 12/05/16 12/05/16 12/06/16 15:00 23:00 07:00 Intake Total 800 ml 1990 ml 1380 ml Balance 800 ml 1990 ml 1380 ml Results Result Diagram: 12/06/16 0507 12/06/16 0507 Results 24 hrs Laboratory Tests Test 12/05/16 07:40 12/05/16 10:02 12/05/16 10:38 12/05/16 12:09 Bedside Glucose 155 164 166 94 Test 12/05/16 13:04 12/05/16 13:20 12/05/16 13:35 12/05/16 17:27 Bedside Glucose 62 L 147 130 142 Test 12/05/16 18:13 12/05/16 20:49 12/06/16 05:07 Bedside Glucose 160 160 White Blood Count 7.4 # Red Blood Count 4.31 Hemoglobin 12.2 Hematocrit 38.2 Mean Corpuscular Volume 88.6 Mean Corpuscular Hemoglobin 28.3 L Mean Corpuscular Hemoglobin Concent 31.9 L Red Cell Distribution Width 13.8 Platelet Count 232 Mean Platelet Volume 10.7 H Neutrophils % 44.7 Lymphocytes % 46.5 Monocytes % 6.4 Eosinophils % 1.8 Basophils % 0.3 Nucleated Red Blood Cells % 0.0 Neutrophils # 3.3 Lymphocytes # 3.4 H Monocytes # 0.5 Eosinophils # 0.1 Basophils # 0.0 Nucleated Red Blood Cells # 0.0 Sodium Level 137 Potassium Level 3.9 Chloride Level 108 Carbon Dioxide Level 26 Anion Gap 7 L Blood Urea Nitrogen 9 Creatinine 0.50 Glucose Level 235 H Calcium Level 8.2 L Phosphorus Level 3.3 Magnesium Level 1.8 Total Bilirubin 0.0 L Direct Bilirubin 0.00 Indirect Bilirubin 0.0 Aspartate Amino Transf (AST/SGOT) 26 Alanine Aminotransferase (ALT/SGPT) 39 Alkaline Phosphatase 64 Total Protein 6.1 Albumin 3.2 L Globulin 2.90 Albumin/Globulin Ratio 1.10 Lipase 71 Thyroid Stimulating Hormone (TSH) Pending Medications Medications Current Medications Ondansetron HCl (Zofran Inj) 4 mg Q6H PRN IV NAUSEA AND/OR VOMITING; Start at 19:00 Acetaminophen (Tylenol Tab) 650 mg Q6H PRN PO PAIN LEVEL 1-3 OR FEVER Last administered on 12/05/16 23:18; Admin Dose 650 MG; Start 12/04/16 at 19:00 Acetaminophen/ Hydrocodone Bitart ([place] (5/325)) 1 tab Q6H PRN PO MODERATE PAIN LEVEL 4-6; Start 12/04/16 at 19:00 Morphine Sulfate (morphine) 2 mg Q4H PRN IV SEVERE PAIN LEVEL 7-10; Start 12/04 at 19:00 Insulin Glargine (Lantus) 40 unit QHS SC Last administered on 12/05/16 20:59; Admin Dose 40 UNIT; Start 12/05/16 at 21:00 Miscellaneous Information 1 ea NOTE XX ; Start 12/04/16 at 23:45 Glucose (Glutose) 15 gm Q15M PRN PO DECREASED GLUCOSE; Start 12/04/16 at 23:45 Glucose (Glutose) 22.5 gm Q15M PRN PO DECREASED GLUCOSE; Start 12/04/16 at 23: 45 Dextrose (D50w Syringe) 25 ml Q15M PRN IV DECREASED GLUCOSE Last administered on 12/05/16 13:18; Admin Dose 25 ML; Start 12/04/16 at 23:45 Dextrose (D50w Syringe) 50 ml Q15M PRN IV DECREASED GLUCOSE; Start 12/04/16 at 23:45 Glucagon (Glucagen) 1 mg Q15M PRN IM DECREASED GLUCOSE; Start 12/04/16 at 23:45 Glucose (Glutose) 15 gm Q15M PRN BUCCAL DECREASED GLUCOSE; Start 12/04/16 at 23 :45 Heparin Sodium (Porcine) 5000 unit 5,000 unit Q12 SC Last administered on 21:15; Admin Dose 5,000 UNIT; Start 12/05/16 at 09:00 Ceftriaxone Sodium 50 ml @ 100 mls/hr Q12 IVPB Last administered on 12/05/16 20:52; Admin Dose 100 MLS/HR; Start 12/04/16 at 23:45 Dextrose/Sodium Chloride (D5-1/2ns) 1,000 ml @ 120 mls/hr Q8H20M IV Last administered on 12/06/16 01:35; Admin Dose 120 MLS/HR; Start 12/05/16 at 03:30 Pantoprazole (Protonix Iv) 40 mg DAILY@06 IV Last administered on 12/06/16 06: 37; Admin Dose 40 MG; Start 12/06/16 at 06:00 KYLEE TSANG MD Dec 06, 2016 07:35
--- NOTE | 2016-12-06 07:39 | PDOCDIS ---
Discharge Instructions DIAGNOSIS Discharge Diagnosis: ileus CONDITION Patient Condition: Good HOME CARE INSTRUCTIONS: Special Diet: NPO ACTIVITY: Activity Restrictions: Slowly Increase Activity Do not Drive FOLLOW UP/APPOINTMENTS Appointments PCP 1wk Dr Lang 2wKYLEE Cagle MD Dec 06, 2016 07:39
[2016-12-06] MEDS ORDERED: IBUP-1542 PO (07:41)
[2016-12-06 07:53] LABS: THYROID STIMULATING HORMONE 2.57 MIU/L (0.465-4.680)
[2016-12-06 08:03] VITALS: BP 141/73; RESP 20
[2016-12-06] MEDS: HEPARIN 5,000 UNIT/0.5 ML VIAL SC SCH (08:30)
[2016-12-06] MEDS: INSULIN ASPART [NOVOLOG] 3 ML PEN SC SCH ×4 (08:30→12:13)
--- NOTE | 2016-12-06 09:42 | DS ---
DATE OF ADMISSION: 12/04/2016 DATE OF DISCHARGE: 12/06/2016 PRIMARY CARE PHYSICIAN: Unknown. STILE RIPSAW OPERATOR: GI. DIAGNOSIS ON ADMISSION: Partial small-bowel obstruction. DIAGNOSES ON DISCHARGE: 1. Partial small-bowel obstruction. 2. Morbid obesity. 3. Chronic hypertension. 4. Dyslipidemia. 5. Diabetes. 6. Metabolic syndrome. 7. Probable uterine leiomyomatous change. HOSPITAL COURSE: A 66-year-old female admitted with a bowel obstruction versus ileus. She improved with conservative measures. The patient was seen by GI. As she has improved, we will be stable an d try her diet as at home. Consider outpatient GI evaluation as needed. Not sure if she has ever h ad a screening colonoscopy, but I will have her see GI if possible as an outpatient. Etiology undete rmined, possibly obstipation/constipation. LABORATORY: White cell count of 7, hemoglobin and hematocrit of 12 and 38, platelets of 230. INR o f 0.9. Lipase 71. CMP unremarkable. A1c is 7.8. Cholesterol 114. Triglycerides 69, LDL 62, HDL of 38. Repeat CAT scan with contrast shows resolution of ileus/partial small-bowel obstruction, increased b ilateral atelectasis. There is hepatomegaly, hepatic steatosis, nodular uterus, incidental leiomyom atous change. IMAGING: Chest x-ray, cardiomegaly, clear lung. Ultrasound of the gallbladder, no acute process. Microbiology, negative at 48 hours. DISCHARGE PLAN: Home. Follow up with primary in 1 week, GI in 2 to 3 weeks. DIET: 1800 ADA. ACTIVITY: No heavy lifting. DURABLE MEDICAL EQUIPMENT: None. CODE STATUS: FULL. CONDITION: Stable. BARRIERS TO DISCHARGE: None. PENDING TESTS: None. FUNCTIONAL STATUS: The patient is awake, alert, agrees to the plan of care. ALLERGIES: NO KNOWN DRUG ALLERGIES. REASON FOR ADMISSION: Abdominal pain. Differential includes obstipation. She has risk factors for ischemic colitis, but obviously, I woul d not changing any management at this time. She should stay hydrated and avoid anemia. STOPPED MEDICATIONS: None. CONTINUED MEDICATIONS: 1. Lisinopril 20. 2. Zocor 40. 3. Lantus 40 at bedtime. 4. Humalog 15 units in morning. 5. Metformin 1000 with meals. 6. Januvia 100 daily. NEW MEDICATIONS: 1. Tylenol as needed. 2. Motrin as needed. Dictated By: KYLEE CLEMENT/LORETO Conf#: [id number] DID#: [id number] CC: STACIA HARGROVE;*End*
== END 2016-12-06 13:08 | disposition home or self-care (01) | DRG 390 ==
LOC: E/R 15:26 → MS2 17:33
PROVIDERS: ADMIT Internal Medicine; ATTEND Internal Medicine
DX: K56.60 Unspecified intestinal obstruction (principal); E88.81 Metabolic syndrome and other insulin resistance; E66.01 Morbid (severe) obesity due to excess calories; I10 Essential (primary) hypertension; E78.5 Hyperlipidemia, unspecified; E11.9 Type 2 diabetes mellitus without complications; Z68.33 Body mass index [BMI] 33.0-33.9, adult; D25.9 Leiomyoma of uterus, unspecified
CPT/HCPCS: 36415; 71010; 74176; 74177; 76705; 80053; 80061; 81001; 81003; 82962; 83036; 83605; 83690; 83735; 84100; 84443; 84484; 85025; 85610; 85730; 87040; 87086; 93005; 96374; 96375; 96376; C9113; J0692; J0696; J1644; J1815; J2270; J2405; J3370; J7030; J7040; J7042; J7050; Q9967